=== PATIENT | male | born 1935 | race Caucasian/White ===

== ENCOUNTER 2017-08-19 17:54 | Inpatient (IN) | payer MEDICARE, SELFPAY ==
[2017-08-19 18:01] VITALS: BP 148/56; PULSE 76; RESP 22; TEMP 38.9; O2SAT 97; BMI 22.6
--- NOTE | 2017-08-19 18:40 | HMH.EDFEV ---
ED Disposition Clinical Impression: Dehydration, Flu-like symptoms, Viral respiratory illness Disposition: Still a Patient Condition on Discharge: Fair - Critical Care Critical Care Time: No Attestation: On , the high probability of a clinically significant, sudden or life threatening deterioration of the following system(s) required my full and direct attention, intervention and personal management. The time I documented below is in addition to time spent performing reported procedures but includes the following listed in this critical care notation. Medical Decision Making Vital Signs: 08/19/17 18:01 Temperature 102.0 F H Temperature Source Oral Pulse Rate [Left Radial] 76 Respiratory Rate 22 Blood Pressure [Left Arm] 148/56 Blood Pressure Mean [Left Arm] 86 Blood Pressure Source [Left Arm] Automatic Cuff Blood Pressure Position [Left Arm] Sitting 02 Sat by Pulse Oximetry 97 Oxygen Delivery Method Room Air - Lab Data Lab Results 08/19/17 18:40: WBC 8.4, RBC 3.98 L, Hgb 12.3 L, Hct 36.8 L, MCV 92.4, MCH 30.9, MCHC 33.4, RDW 13.5, Plt Count 138 L, MPV 9.5, Neut % (Auto) 73.6, Lymph % (Auto) 16.7, [place] % (Auto) 8.5, Eos % (Auto) 0.6, Baso % (Auto) 0.5, Neut # (Auto) 6.2, Lymph # (Auto) 1.4, [place] # (Auto) 0.7, Eos # (Auto) 0.1, Baso # (Auto) 0.0 08/19/17 18:40: Sodium 135 L, Potassium 4.5, Chloride 101, Carbon Dioxide 25, Anion Gap 13.5, BUN 48 H, Creatinine 2.95 H, Estimated Creat Clear 17, Estimated GFR 21 L, Est GFR ( Amer) 25 L, Glucose 185 H 08/19/17 18:40: Influenza Type A Ag Negative, Influenza Type B Ag Negative, Group A Strep Rapid Negative 08/19/17 19:04: Lactic Acid 1.0 08/19/17 19:25: Urine Color Yellow, Urine Appearance Clear, Urine pH 6.0, Ur Specific [place] 1.020, Urine Protein 2+, Urine Glucose (UA) 1+, Urine Ketones Negative, Urine Blood 2+, Urine Nitrate Negative, Urine Bilirubin Negative, Urine Urobilinogen 0.2, Ur Leukocyte Esterase Negative Result diagrams: 08/19/17 18:40 08/19/17 18:40 Orders (Tests/Meds): ED MEDICATIONS Generic Name Dose Route Start Last Admin Trade Name Freq PRN Reason Stop Dose Admin Sodium Chloride 1,000 mls @ 150 mls/hr 08/19/17 19:30 08/19/17 19:24 Sod Chloride 0.9% 1000ml Bag IV 09/18/17 19:29 150 mls/hr .[id number] KATHERINE Administration Discontinued Medications Generic Name Dose Route Start Last Admin Trade Name Freq PRN Reason Stop Dose Admin Acetaminophen 650 mg 08/19/17 18:25 08/19/17 18:26 Acetaminophen 325mg Tab PO 08/19/17 18:26 650 mg ONCE STA Administration ORDERS Category Date Time Status Chest XR -- portable [XR chest portable] Stat Exams 08/19/17 18:57 Taken UA [Urinalysis and Microscopic] Stat Lab 08/19/17 19:25 Received Blood Culture Stat Micro 08/19/17 18:42 Ordered Blood Culture Stat Micro 08/19/17 19:09 Ordered Strep Screen Confirmation Stat Micro 08/19/17 18:40 Received - Radiology Data #1 Image(s): Chest Chest x-ray interpreted by Yannick Camara M.D. No infiltrate, pneumothorax, pleural effusion, or wide mediastinum. No change from prior chest x-ray. - Facundo Inquiry Pt receiving controlled substance: No Medical Decision Making Narrative: I have discussed the case with Dr. barbour who agrees to admit the patient to the hospital. We discussed the patient's clinical information, including history, exam, laboratory and radiology results and ED course. Per hospital procedure, I will write temporary bridge inpatient orders on the patient. Specific orders requested by the admitting physician: IV fluids, Tylenol for fever control Fever HPI - General Chief Complaint: Fever Stated Complaint: cough,brar,congestion,sore throat Mode of Arrival: Wheelchair Source of Information: Relative Limitations: Physical Limitations Description of Symptoms (Recalled from ER Triage Doc. by RN): SORE THROAT, FEVER, COUGH, HEADACHES, CHILLS - History of Present Illness HPI Narrative: T
--- NOTE | 2017-08-19 18:57 | XR_ITS ---
XR chest portable HISTORY: ITS.REASON: FEVER, COUGH ORDERING PHYSICIAN: Yannick Camara MD PATIENT AGE: 82 years COMPARISON: 04/23/2017 FINDINGS: The cardiomediastinal silhouette and pulmonary vascularity are within normal limits. No lobar consolidation or collapse. Chronic changes Old bilateral rib fractures. IMPRESSION: No change with no acute finding
[2017-08-19 18:59] LABS: Basophils % 0.5 % (0.1-2.0); Eosinophils # 0.1 K/mm3 (0.0-0.4); Eosinophils % 0.6 % (0.1-12.0); Hematocrit 36.8 % (42.0-52.0); Hemoglobin 12.3 g/dL (14.1-18.0); Lymphocytes # 1.4 K/mm3 (0.7-4.5); Lymphocytes % 16.7 K/mm3 (10-50); Mean Corpuscular HGB Conc 33.4 g/dL (31.8-35.4); Mean Corpuscular Hemoglobin 30.9 pg (27.0-31.2); Mean Corpuscular Volume 92.4 fl (80-94); Mean Platelet Volume 9.5 fl (7.4-10.4); Monocytes # 0.7 K/mm3 (0.1-1.0); Monocytes % 8.5 % (1.7-9.3); Neutrophils # 6.2 K/mm3 (1.8-7.8); Neutrophils % 73.6 % (37.0-80.0); Platelet Count 138 K/mm3 (142-424); Red Blood Count 3.98 M/mm3 (4.60-6.20); Red Cell Distribution Width 13.5 % (11.5-17.5); White Blood Count 8.4 K/mm3 (4.8-10.8)
[2017-08-19 19:10] LABS: Anion Gap 13.5 mEq/L (5-15); Blood Urea Nitrogen 48 mg/dL (7-18); Carbon Dioxide 25 mmol/L (21.0-32.0); Chloride 101 mmol/L (98-107); Creatinine Clearance Estimated 17 mL/min (0-300); Creatinine,Serum 2.95 mg/dL (0.70-1.30); Estimated Glomerular Filt Rate 21 ml/min (>60); GFR (African American) 25 ML/MIN (>60); Glucose 185 mg/dL (74-106); Potassium 4.5 mmoL/L (3.5-5.1); Sodium 135 mmol/L (136-145)
[2017-08-19 19:19] LABS: Strep Scrn Group A (Rapid) Negative (Negative)
[2017-08-19 19:34] LABS: Microscopic, Urine URINE MICROSCOPIC (MICROSCOPIC)
[2017-08-19 19:37] LABS: Appearance,Urine CLEAR (Clear); Bilirubin,Urine Negative (Negative); Blood, Urine 2+ (Negative); Color,Urine YELLOW (Yellow); Glucose,Urine (UA) 1+ (Negative); Ketones,Urine Negative (Negative); Leukocyte Esterase,Urine Negative (Negative); Nitrate,Urine Negative (Negative); Protein,Urine 2+ (Negative); Urobilinogen,Urine 0.2 EU/dl (0.2)
[2017-08-19 19:52] VITALS: BP 158/56; PULSE 89; RESP 24; TEMP 38.8; O2SAT 95
[2017-08-19 19:54] LABS: Amorphous Sediment,Urine 2+ /lpf; Mucus,Urine 3+ /lpf; WBC,Urine Occasional #/hpf (0-3)
[2017-08-19 19:55] LABS: Hyaline Casts,Urine Occasional #/lpf (0)
[2017-08-19 20:28] VITALS: BP 138/61; PULSE 74; RESP 16; TEMP 39.2
--- NOTE | 2017-08-19 21:44 | HMH.HP ---
*Admission Date: 08/19/17 *Chief complaint: Sore throat and weakness *History of present illness: This 82-year-old white male was seen Dr. Saleem in [facility] office on 08/18/2017. This was a follow-up visit but at the visit the patient was complaining that his throat was very sore. His family stated that he was not eating due to his sore throat. He has developed a cough. He had also run a low-grade fever. Flu test was negative in the office and his CBC was normal. He was discharged from the office with instructions for symptomatic care. He presented this evening at the emergency room at [facility] with the same complaints and with persistent sore throat and fever. He does have chronic renal failure and is followed by peer tutor Dr. Matt. He is also treated for parkinsonian symptoms with carbidopa-levodopa and with Mirapex. He also takes fludrocortisone 0.1 mg 3 times a week [facility] History Medical History: Reports:: Anxiety, Atherosclerotic Heart Disease, BPH, Diabetes Mellitus Type 2, Hyperlipidemia, Hypertension, Renal Insufficiency Denies:: Cancer, Diabetes Mellitus Type 1, Internal Pacemaker, MRSA Other Medical History: Reports: Arthritis, Hoarseness, Sinus Problems. Denies: Thyroid Disease Other Surgeries: Yes: Appendectomy, Skin Cancer Excision (Right holiness). No: No Previous Surgery, Pacemaker Amputation: No Fractures: Yes (RIBS) - *Social History Educational Level: Attended Grade School Smoking Status: Never smoker Alcohol Intake: never Substance Use Type: denies use Occupational Status: retired Housing: house Household Members: children - Psychiatric History Expresses thoughts of harming self/others: None Suicide Plan Description: No Plan *Family Hx:: Unable to obtain, No significant family history Comment: 5 brothers, 4 sisters, 1 son, 1 daughter. Review of Systems - Constitutional Reports fatigue, Reports weakness - Eyes Denies change in vision - ENT Reports hoarseness, Reports neck pain, Reports pain with swallowing, Reports sore throat - *Cardiovascular Denies chest pain, Denies rapid, pounding, or irregular heartbeat - *Respiratory Reports chest congestion, Reports cough, Denies wheezing - *Gastrointestinal Denies abdominal pain, Denies change in bowel habits - *Genitourinary Reports difficulty urinating, Reports urinary hesitancy - *Musculoskeletal Reports back pain Comments: History of T3 fracture and 2 broken ribs 12/2016 - Integumentary/Breasts Reports dry skin, Denies change in skin color - *Neurologic Reports abnormal walking, Reports abnormal speech, Reports unsteadiness, Reports headache(s), Reports memory loss - Psychiatric Reports anxiety, Denies depression - Hematologic/Lymphatic Denies easy bleeding Meds Home Medications Medication Instructions Recorded Confirmed Type Carbidopa/Levodopa 1 tab PO BID 08/19/17 08/19/17 History [Carbidopa/Levodopa 25/100mg Tablet] Carvedilol [Carvedilol 12.5mg Tab] 1 tab PO BID 08/19/17 08/19/17 History Carvedilol [Carvedilol 12.5mg Tab] 1 tab PO BID 08/19/17 08/19/17 History Citalopram Hydrobromide [Celexa 1 tab PO DAILY 08/19/17 08/19/17 History 10mg Tablet] Fludrocortisone Acetate [Florinef 1 tab PO DAILY 08/19/17 08/19/17 History 0.1mg tablet] Gabapentin [Gabapentin 100mg Cap] 1 tab PO TID 08/19/17 08/19/17 History Insulin Glargine,Hum.rec.anlog 10 unit SQ QPMWM 08/19/17 08/19/17 History [Timmy Babin] Pramipexole Di-HCl [Mirapex 0.125 mg PO DAILY 08/19/17 08/19/17 History 0.125mg tablet] Pravastatin Sodium [Pravachol 20mg 1 tab PO DAILY 08/19/17 08/19/17 History Tablet] Tamsulosin HCl [Flomax 0.4mg 2 tab PO DAILY 08/19/17 08/19/17 History capsule] Allergies Allergy/AdvReac Type Severity Reaction Status Date / Time Penicillins [PENICILLINS] Allergy Intermediate Verified 08/19/17 18:18 Exam Vital signs and Labs for Last 24 Hours: Temp Pulse Re
--- NOTE | 2017-08-19 21:47 | P.HP_ITS ---
*Admission Date: 08/19/17 *Chief complaint: Sore throat and weakness *History of present illness: This 82-year-old white male was seen Dr. Saleem in [facility] office on 08/18/2017. This was a follow-up visit but at the visit the patient was complaining that his throat was very sore. His family stated that he was not eating due to his sore throat. He has developed a cough. He had also run a low-grade fever. Flu test was negative in the office and his CBC was normal. He was discharged from the office with instructions for symptomatic care. He presented this evening at the emergency room at [facility] with the same complaints and with persistent sore throat and fever. 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 He is also treated for parkinsonian symptoms with carbidopa-levodopa and with Mirapex. He also takes fludrocortisone 0.1 mg 3 times a week [facility] History Medical History: Reports:: Anxiety, Atherosclerotic Heart Disease, BPH, Diabetes Mellitus Type 2, Hyperlipidemia, Hypertension, Renal Insufficiency Denies:: Cancer, Diabetes Mellitus Type 1, Internal Pacemaker, MRSA Other Medical History: Reports: Arthritis, Hoarseness, Sinus Problems. Denies: Thyroid Disease Other Surgeries: Yes: Appendectomy, Skin Cancer Excision (Right adventism). No: No Previous Surgery, Pacemaker Amputation: No Fractures: Yes (RIBS) - *Social History Educational Level: Attended Grade School Smoking Status: Never smoker Alcohol Intake: never Substance Use Type: denies use Occupational Status: retired Housing: house Household Members: children - Psychiatric History Expresses thoughts of harming self/others: None Suicide Plan Description: No Plan *Family Hx:: Unable to obtain, No significant family history Comment: 5 brothers, 4 sisters, 1 son, 1 daughter. Review of Systems - Constitutional Reports fatigue, Reports weakness - Eyes Denies change in vision - ENT Reports hoarseness, Reports neck pain, Reports pain with swallowing, Reports sore throat - *Cardiovascular Denies chest pain, Denies rapid, pounding, or irregular heartbeat - *Respiratory Reports chest congestion, Reports cough, Denies wheezing - *Gastrointestinal Denies abdominal pain, Denies change in bowel habits - *Genitourinary Reports difficulty urinating, Reports urinary hesitancy - *Musculoskeletal Reports back pain Comments: History of T3 fracture and 2 broken ribs 12/2016 - Integumentary/Breasts Reports dry skin, Denies change in skin color - *Neurologic Reports abnormal walking, Reports abnormal speech, Reports unsteadiness, Reports headache(s), Reports memory loss - Psychiatric Reports anxiety, Denies depression - Hematologic/Lymphatic Denies easy bleeding Meds Home Medications Medication Instructions Recorded Confirmed Type Carbidopa/Levodopa 1 tab PO BID 08/19/17 08/19/17 History [Carbidopa/Levodopa 25/100mg Tablet] Carvedilol [Carvedilol 12.5mg Tab] 1 tab PO BID 08/19/17 08/19/17 History Carvedilol [Carvedilol 12.5mg Tab] 1 tab PO BID 08/19/17 08/19/17 History Citalopram Hydrobromide [Celexa 1 tab PO DAILY 08/19/17 08/19/17 History 10mg Tablet] Fludrocortisone Acetate [Florinef 1 tab PO DAILY 08/19/17 08/19/17 History 0.1mg tablet] Gabapentin [Gabapentin 100mg Cap] 1 tab PO TID 08/19/17 08/19/17 History Insulin Glargine,Hum.rec.anlog 10 unit SQ QPMWM 08/19/17 08/19/17 History [Timmy Babin]
[2017-08-19 22:04] VITALS: BMI 21.3
[2017-08-19 22:16] LABS: Thyroid Stimulating Hormone 1.51 uIU/ml (0.358-3.740)
[2017-08-19 22:28] LABS: Erythrocyte Sedimentation Rate 33 mm/hr (0-20)
[2017-08-19 22:36] LABS: POC Glucose,Bedside 244 mg/dL
[2017-08-20] VITALS (8 sets, daily range): BP systolic 113–172; BP diastolic 60–69; PULSE 64–86; RESP 16–20; TEMP 36.9–38.3; O2SAT 81–99
--- NOTE | 2017-08-20 04:38 | PC.NURSE ---
PT NEW ADMIT THIS SHIFT. DAUGHTER PROVIDED HISTORY AND MEDS. 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 PT HAS BOWEL/BLADDER INCONTINENCE AT TIMES. NO SKIN ISSUES NOTED. OCCASIONAL NON-PRODUCTIVE COUGH NOTED. RA WITH NO SOB REPORTED.
--- NOTE | 2017-08-20 05:35 | CT_ITS ---
CT soft tissue neck wo con COMPARISON: None HISTORY: Painful swallowing, throat pain TECHNIQUE: Multiple axial scans of the neck were obtained. Sagittal and coronal reformats were evaluated as well. FINDINGS: There is normal curvature and alignment cervical spine. Disc spaces are well maintained throughout. The prevertebral soft tissues are normal and the odontoid is normal. There is no abnormal cervical lymphadenopathy. The epiglottis appears normal. The valleculae and piriform sinuses appear normal. IMPRESSION: No acute pathology identified, agree the [facility] report
--- NOTE | 2017-08-20 05:35 | CT_ITS ---
CT chest wo con COMPARISON: CT scan chest noncontrast 01/04/2017 HISTORY: Shortness of breath, decreased oxygen saturation TECHNIQUE: Multiple axial scans obtained from the thoracic inlet the hemidiaphragms and were performed without IV contrast. Sagittal coronal reformats were evaluated as well. FINDINGS: The lung blas are well expanded. Diffuse patchy ill-defined pneumonic infiltrates are seen in the right upper lobe right perihilar region, superior segment of the right lower lobe and basilar segments of the right lower lobe. There may be minimal involvement of the right middle lobe as well. The left lung field is clear of active infiltrate. Again noted are multiple bilateral noncalcified pulmonary nodule stable and unchanged from previous exam. There is mild cardio megaly with left ventricular prominence, the pulmonary vascularity is normal. There are old healed rib fracture bilaterally. There is a stable old compression fracture T3. There is arteriosclerotic calcification of the aortic arch as noted previously. There are hypodense lesions in the upper poles of both kidneys partially visualized likely resenting simple renal cysts. IMPRESSION: Diffuse bronchopneumonia involving most of the right lung, stable bilateral noncalcified pulmonary nodules, I agree with the [facility] report.
[2017-08-20 05:58] LABS: ABG Base Excess -5.2 mmol/L (-2.4-2.3); ABG Oxygen Saturation 93 % (90-100); ABG PCO2 28.7 mmhg (35.0-45.0); ABG PH 7.44 mmol/L (7.35-7.45); ABG PO2 64.2 mmhg (80-100); ABG TCO2 19.9 mmhg (23-27)
[2017-08-20 06:00] LABS: Allen's Test Acceptable; Oxygen 28% %; Source Left Radial
--- NOTE | 2017-08-20 06:23 | PC.NURSE ---
Addendum entered by Charito Olivo RN 08/20/17 06:56: LUNG DIMINISHED RIGHT SIDE, MORE SO IN RIGHT BASE. LUNG CTA LEFT LOBES Original Note: AT 0505 PT OXYGEN LEVEL 80-81 PERCENT ON RA. SET PT UP, HAD PT DEEP BREATH AND COUGH. SATS UP TO 85 PERCENT. PLACED PT ON 2L PER NC WITH 02 SATS 89-[address] CRENSHAW AT 0520. MULTIPLE PHONE CONVERSATIONS WITH DR CRENSHAW. FINALLY RECEIVED ORDER FOR ABGS AND CT OF CHEST AND NECK WITHOUT CONTRAST. PT DENIED SOB AND NO RESPIRATORY DISTRESS NOTED. PT SATS REACHED 94 PERCENT ON 2L PER NC. RECEIVED ORDER FOR OXYGEN. CONTINUE TO MONITOR PT. PT CURRENTLY OFF UNIT FOR CT.
[2017-08-20 06:29] LABS: POC Glucose,Bedside 160 mg/dL
[2017-08-20 06:33] LABS: Basophils % 0.1 % (0.1-2.0); Eosinophils % 0.2 % (0.1-12.0); Hematocrit 38.7 % (42.0-52.0); Hemoglobin 12.5 g/dL (14.1-18.0); Lymphocytes # 0.8 K/mm3 (0.7-4.5); Lymphocytes % 12.2 K/mm3 (10-50); Mean Corpuscular HGB Conc 32.5 g/dL (31.8-35.4); Mean Corpuscular Hemoglobin 30.5 pg (27.0-31.2); Mean Corpuscular Volume 94.1 fl (80-94); Mean Platelet Volume 9.5 fl (7.4-10.4); Monocytes # 0.3 K/mm3 (0.1-1.0); Monocytes % 5.2 % (1.7-9.3); Neutrophils % 82.4 % (37.0-80.0); Platelet Count 123 K/mm3 (142-424); Red Blood Count 4.11 M/mm3 (4.60-6.20); Red Cell Distribution Width 13.5 % (11.5-17.5); White Blood Count 6.1 K/mm3 (4.8-10.8)
--- NOTE | 2017-08-20 06:42 | PC.NURSE ---
Pt off floor for CT at this time
[2017-08-20 06:57] LABS: Anion Gap 15.1 mEq/L (5-15); Blood Urea Nitrogen 48 mg/dL (7-18); Carbon Dioxide 23 mmol/L (21.0-32.0); Chloride 104 mmol/L (98-107); Creatinine Clearance Estimated 17 mL/min (0-300); Creatinine,Serum 2.71 mg/dL (0.70-1.30); Estimated Glomerular Filt Rate 23 ml/min (>60); GFR (African American) 27 ML/MIN (>60); Glucose 158 mg/dL (74-106); Potassium 4.1 mmoL/L (3.5-5.1); Sodium 138 mmol/L (136-145)
--- NOTE | 2017-08-20 07:47 | PC.NURSE ---
REPORT OBTAINED FROM DARLENE DALE
--- NOTE | 2017-08-20 09:09 | HMH.ACPN2 ---
Internal Medicine - PN: Subj *Date: 08/20/17 *Time: 09:09 Interval history: He remained stable. He is still hoarse and congested. His TSH returned as normal. His blood chemistries are stable and his creatinine has come down only slightly. I ordered a CT of the neck and chest without contrast. The results of these are pending. Exam Vital signs and Labs for Last 24 Hours: Temp Pulse Resp BP Pulse Ox 100.9 F H 86 16 113/60 93 L 08/20/17 08:14 08/20/17 08:14 08/20/17 08:14 08/20/17 08:14 08/20/17 08:14 Laboratory Results - last 24 hr 08/19/17 21:54: POC Glucose 244 08/20/17 05:50: Specimen Source Left radial, O2 % 28%, ABG pH 7.44, ABG pCO2 28.7 L, ABG pO2 64.2 L, ABG HCO3 19.0 L, ABG Total CO2 19.9 L, ABG O2 Saturation 93, ABG Base Excess -5.2 L, Brooks Test Acceptable 08/20/17 05:51: POC Glucose 160 08/20/17 06:00: WBC 6.1 D, RBC 4.11 L, Hgb 12.5 L, Hct 38.7 L, MCV 94.1 H, MCH 30.5, MCHC 32.5, RDW 13.5, Plt Count 123 L, MPV 9.5, Neut % (Auto) 82.4 H, Lymph % (Auto) 12.2, [place] % (Auto) 5.2, Eos % (Auto) 0.2, Baso % (Auto) 0.1, Neut # (Auto) 5.0, Lymph # (Auto) 0.8, [place] # (Auto) 0.3, Eos # (Auto) 0.0, Baso # (Auto) 0.0 08/20/17 06:00: Sodium 138, Potassium 4.1, Chloride 104, Carbon Dioxide 23, Anion Gap 15.1 H, BUN 48 H, Creatinine 2.71 H, Estimated Creat Clear 17, Estimated GFR 23 L, Est GFR ( Amer) 27 L, Glucose 158 H I & O for Last 24 hours: Intake & Output 08/17/17 08/18/17 08/19/1718 11:59 11:59 11:59 11:59 Intake Total 1461 / 1461 Output Total 350 / 350 Balance 1111 / 1111 Weight 117 lb 8 oz - Constitutional no acute distress - *Routine Neck Exam Present: supple, full ROM. Absent: swelling - *Routine Respiratory Exam Present: decreased breath sounds, rhonchi (Thumb) - *Routine Abdominal Exam Present: soft - *Routine Extremities Exam Absent: edema Assessment and Plan (1) Throat pain Current visit: Yes Status: Acute Category: Medical Code(s): R07.0 - Pain in throat (2) Renal failure Current visit: Yes Status: Acute Category: Medical Code(s): N19 - Unspecified kidney failure (3) Weakness Current visit: Yes Status: Acute Category: Medical Code(s): R53.1 - Weakness (4) Insulin dependent diabetes mellitus Current visit: Yes Status: Acute Category: Medical Code(s): E11.9 - Type 2 diabetes mellitus without complications; Z79.4 - assistant terminal manager (current) use of insulin (5) Diabetes mellitus Current visit: Yes Status: Acute Category: Medical Code(s): E11.9 - Type 2 diabetes mellitus without complications - Assessment and plan all Dx Assessment and Plan for all problems:: await CT
--- NOTE | 2017-08-20 13:40 | HMH.PHAVTE ---
[facility] Pharmacy VTE Monitoring - Patient Demographics Admission date: 08/19/17 Report Date: 08/20/17 Time: 13:40 Allergies/Adverse Reactions: Patient Allergies Penicillins [PENICILLINS] Allergy (Intermediate, Verified 08/19/17 18:18) Height: 1.63 m Weight: 53.297 kg Patient Problems: Current Active Problems Dehydration (Acute) Flu-like symptoms (Acute) Viral respiratory illness (Acute) Throat pain (Acute) Weakness (Acute) Renal failure (Acute) Diabetes mellitus (Acute) Insulin dependent diabetes mellitus (Acute) - VTE Risk Labs: VTE Related Lab Results Hgb 12.5 g/dL (14.1-18.0) L 08/20/17 06:00 Hct 38.7 % (42.0-52.0) L 08/20/17 06:00 Plt Count 123 K/mm3 (142-424) L 08/20/17 06:00 BUN 48 mg/dL (7-18) H 08/20/17 06:00 Creatinine 2.71 mg/dL (0.70-1.30) H 08/20/17 06:00 Estimated Creat Clear 17 mL/min (0-300) 08/20/17 06:00 Was VTE Risk Assessment Performed: Yes VTE Score: 4 VTE Risk Level: Low Risk - Prophylaxis VTE Prophylaxis Ordered?: Yes Types of VTE Prophylaxis: TEDS Knee High Location of Applied Device: Bilateral Lower Extremeties
[2017-08-20 17:08] LABS: POC Glucose,Bedside 309 mg/dL
--- NOTE | 2017-08-20 19:56 | PC.NURSE ---
report given to jose antonio mosley rn
[2017-08-20 21:40] LABS: POC Glucose,Bedside 231 mg/dL
[2017-08-21] VITALS (11 sets, daily range): BP systolic 117–192; BP diastolic 42–99; PULSE 57–73; RESP 18–22; TEMP 36.3–36.9; O2SAT 91–100; BMI 19.6
--- NOTE | 2017-08-21 04:32 | PC.NURSE ---
NO COMPLAINTS STATED. TOLERATED 2LNC WELL THIS SHIFT. WILL ATTEMPT TO WEAN OXYGEN DOWN ON 0500 ROUND. RHONCHI AUSCULTATED ON ASSESSMENT OF LUNG SOUNDS. A&OX3 AND NOTIFIED STAFF APPROPRIATELY THIS SHIFT. VSS. WILL CONTINUE TO MONITOR.
[2017-08-21 06:39] LABS: POC Glucose,Bedside 155 mg/dL
--- NOTE | 2017-08-21 10:45 | HMH.ACPN2 ---
Internal Medicine - PN: Subj *Date: 08/21/17 *Time: 10:45 Interval history: He is markedly improved today. His voice is even stronger! He is not having throat pain. He is less congested. His chest x-ray did not indicate pneumonia but the CT showed bronchopneumonia on the right. He is responding to IV antibiotic. Exam Vital signs and Labs for Last 24 Hours: Temp Pulse Resp BP Pulse Ox 97.9 F 65 22 120/58 96 08/21/17 08:00 08/21/17 08:00 08/21/17 08:00 08/21/17 08:00 08/21/17 08:40 Laboratory Results - last 24 hr 08/20/17 16:44: POC Glucose 309 08/20/17 21:10: POC Glucose 231 08/21/17 06:23: POC Glucose 155 I & O for Last 24 hours: Intake & Output 08/18/17 08/19/17 08/20/17 08/21/17 11:59 11:59 11:59 11:59 Intake Total 1461 / 1461 2703 / 2703 Output Total 350 / 350 1200 / 1200 Balance 1111 / 1111 1503 / 1503 Weight 117 lb 8 oz 117 lb 8 oz - Constitutional no acute distress Comments: Obviously feels better - *Routine HEENT Exam Comments: Voice is much stronger. - *Routine Respiratory Exam Comments: Much better air movement. Not wheezing. - *Routine Cardiovascular Exam Present: RRR - *Routine Extremities Exam Absent: edema Assessment and Plan (1) Bronchopneumonia Current visit: Yes Status: Acute Category: Medical Code(s): J18.0 - Bronchopneumonia, unspecified organism (2) Throat pain Current visit: Yes Status: Acute Category: Medical Code(s): R07.0 - Pain in throat (3) Dehydration Current visit: Yes Status: Acute Category: Medical Code(s): E86.0 - Dehydration (4) Renal failure Current visit: Yes Status: Acute Category: Medical Code(s): N19 - Unspecified kidney failure (5) Weakness Current visit: Yes Status: Acute Category: Medical Code(s): R53.1 - Weakness (6) Insulin dependent diabetes mellitus Current visit: Yes Status: Acute Category: Medical Code(s): E11.9 - Type 2 diabetes mellitus without complications; 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
[2017-08-21 13:14] LABS: POC Glucose,Bedside 276 mg/dL
[2017-08-21 13:14] LABS: POC Glucose,Bedside 284 mg/dL
[2017-08-21 13:14] LABS: POC Glucose,Bedside 218 mg/dL
--- NOTE | 2017-08-21 20:36 | PC.NURSE ---
nurse notified of pts elevated bp
--- NOTE | 2017-08-21 23:16 | PC.NURSE ---
nurse notifiied of tps bp
[2017-08-22] VITALS (14 sets, daily range): BP systolic 123–182; BP diastolic 46–76; PULSE 60–81; RESP 16–24; TEMP 36.4–37.1; O2SAT 87–96
--- NOTE | 2017-08-22 04:47 | PC.NURSE ---
C/O RADER AND FEELS WHEEZE AFTER GETTING UP TO USE BATHROOM OR BEING UP TOO LONG. ON 0400 VS O2 SAT NOTED 88% ON RA DESPITE ELEVATING HOB AND INSTRUCTING PT TO INHALE AND EXHALE DEEPLY, OXYGEN SAT ONLY INCREASED TO 89%. PT PLACED ON 1LNC AT THIS TIME. PRIOR TO OBTAINING 0400 VS PT HAD BEEN OOB TO USE THE BATHROOM. RN AUSCULTATED LUNG SOUNDS AT THIS TIME. WHEEZING WAS NOTED. AT BEGINNING OF SHIFT LUNG SOUNDS AUSCULTATED WAS RHONCHI AND WHEEZING. AFTER RESTING, ,PT STATES I ALREADY FEEL BETTER FROM JUST RESTING FOR A FEW MINUTES. WILL CONTINUE TO MONITOR. PT'S RESPIRATORY STATUS CLOSELY AND ATTEMPT TO WEAN TO RA PRIOR TO DAY SHIFT STAFF'S ARRIVAL. DID ADMINISTER PRN TYLENOL FOR C/O RADER. INSTRUCTED PT TO NOTIFY RN IF RADER REMAINS FOLLOWING ADMINISTRATION.
[2017-08-22 06:28] LABS: Basophils % 0.1 % (0.1-2.0); Eosinophils % 0.2 % (0.1-12.0); Hematocrit 32.2 % (42.0-52.0); Hemoglobin 10.5 g/dL (14.1-18.0); Lymphocytes # 0.6 K/mm3 (0.7-4.5); Lymphocytes % 8.2 K/mm3 (10-50); Mean Corpuscular HGB Conc 32.7 g/dL (31.8-35.4); Mean Corpuscular Hemoglobin 30.7 pg (27.0-31.2); Mean Corpuscular Volume 93.7 fl (80-94); Mean Platelet Volume 10.4 fl (7.4-10.4); Monocytes # 0.3 K/mm3 (0.1-1.0); Monocytes % 4.6 % (1.7-9.3); Neutrophils # 6.3 K/mm3 (1.8-7.8); Platelet Count 132 K/mm3 (142-424); Red Blood Count 3.43 M/mm3 (4.60-6.20); Red Cell Distribution Width 13.7 % (11.5-17.5); White Blood Count 7.3 K/mm3 (4.8-10.8)
[2017-08-22 06:29] LABS: Blood Urea Nitrogen 50 mg/dL (7-18); Carbon Dioxide 22 mmol/L (21.0-32.0); Chloride 111 mmol/L (98-107); Creatinine Clearance Estimated 19 mL/min (0-300); Creatinine,Serum 2.23 mg/dL (0.70-1.30); Estimated Glomerular Filt Rate 28 ml/min (>60); GFR (African American) 34 ML/MIN (>60); Glucose 144 mg/dL (74-106); MANUAL DIFFERENTIAL MANUAL DIFFERENTIAL (MANUAL DIFF); Sodium 142 mmol/L (136-145)
[2017-08-22 06:48] LABS: POC Glucose,Bedside 158 mg/dL
[2017-08-22 06:48] LABS: POC Glucose,Bedside 261 mg/dL
--- NOTE | 2017-08-22 07:03 | PC.NURSE ---
WEANED BACK TO RA. O2 SATS NOTED AT 92% ON RA.
--- NOTE | 2017-08-22 08:38 | XR_ITS ---
XR chest portable HISTORY: ITS.REASON: pneumonia ORDERING PHYSICIAN: Sylvia Saleem MD PATIENT AGE: 82 years FINDINGS: The cardiomediastinal silhouette and pulmonary vascularity are within normal limits. Consolidation is now noted in the right upper and right lower lobe consistent with pneumonia. Left lung remains clear. There are old bilateral rib fractures. IMPRESSION: Development of right-sided pneumonia in the inferior aspect of the right upper lobe and in the right lower lobe. This has developed since previous radiograph of 08/19/2017 and appears somewhat worse since the previous CT scan of 08/20/2017
--- NOTE | 2017-08-22 08:40 | HMH.ACPN2 ---
Internal Medicine - PN: Subj *Date: 08/22/17 *Time: 08:40 Interval history: Did not have a very good night; Is SOB and wheezing; ate all of breakfast; bowels are moving and he is voiding without difficulty. patient hs periodic left anterior chest ache Exam Vital signs and Labs for Last 24 Hours: Temp Pulse Resp BP Pulse Ox 97.9 F 66 24 156/46 90 L 08/22/17 04:00 08/22/17 08:34 08/22/17 04:00 08/22/17 04:00 08/22/17 04:00 Laboratory Results - last 24 hr 08/20/17 09:28: POC Glucose 218 08/20/17 11:24: POC Glucose 284 08/21/17 11:24: POC Glucose 276 08/21/17 20:53: POC Glucose 261 08/22/17 05:58: WBC 7.3, RBC 3.43 L, Hgb 10.5 L, Hct 32.2 L, MCV 93.7, MCH 30.7, MCHC 32.7, RDW 13.7, Plt Count 132 L, MPV 10.4, Neut % (Auto) 87.0 H, Lymph % (Auto) 8.2 L, [place] % (Auto) 4.6, Eos % (Auto) 0.2, Baso % (Auto) 0.1, Neut # (Auto) 6.3, Lymph # (Auto) 0.6 L, [place] # (Auto) 0.3, Eos # (Auto) 0.0, Baso # (Auto) 0.0 08/22/17 05:58: Sodium 142, Potassium 4.0, Chloride 111 H, Carbon Dioxide 22, Anion Gap 13.0, BUN 50 H, Creatinine 2.23 H, Estimated Creat Clear 19, Estimated GFR 28 L, Est GFR ( Amer) 34 L D, Glucose 144 H 08/22/17 06:26: POC Glucose 158 I & O for Last 24 hours: Intake & Output 08/19/17 08/20/17 08/21/17 08/22/17 11:59 11:59 11:59 11:59 Intake Total 1461 / 1461 2703 / 2703 3758 / 3758 Output Total 350 / 350 1200 / 1200 925 / 925 Balance 1111 / 1111 1503 / 1503 2833 / 2833 Weight 117 lb 8 oz 117 lb 8 oz 115 lb 4.722 oz - Constitutional no acute distress - *Routine Respiratory Exam Absent: accessory muscle use Comments: bilateral scattered wheezes and rhonchi throughout - *Routine Cardiovascular Exam Present: RRR - *Routine Abdominal Exam Present: soft, normoactive bowel sounds. Absent: tenderness, distended - *Routine Extremities Exam Absent: edema, calf tenderness - *Routine Neurological Exam Present: alert, oriented X3 Assessment and Plan (1) Bronchopneumonia Current visit: Yes Status: Acute Category: Medical Code(s): J18.0 - Bronchopneumonia, unspecified organism (2) Throat pain Current visit: Yes Status: Acute Category: Medical Code(s): R07.0 - Pain in throat (3) Dehydration Current visit: Yes Status: Acute Category: Medical Code(s): E86.0 - Dehydration (4) Renal failure Current visit: Yes Status: Acute Category: Medical Code(s): N19 - Unspecified kidney failure (5) Weakness Current visit: Yes Status: Acute Category: Medical Code(s): R53.1 - Weakness (6) Insulin dependent diabetes mellitus Current visit: Yes Status: Acute Category: Medical Code(s): E11.9 - Type 2 diabetes mellitus without complications; Z79.4 - ferry terminal supervisor (current) use of insulin (7) Diabetes mellitus Current visit: Yes Status: Acute Category: Medical Code(s): E11.9 - Type 2 diabetes mellitus without complications (8) Flu-like symptoms Current visit: Yes Status: Acute Category: Medical Code(s): R68.89 - Other general symptoms and signs - Assessment and plan all Dx Assessment and Plan for all problems:: start Duonebs; saline lock
--- NOTE | 2017-08-22 08:43 | P.PN_ITS ---
Internal Medicine - PN: Subj *Date: 08/22/17 *Time: 08:40 Interval history: Did not have a very good night; Is SOB and wheezing; ate all of breakfast; bowels are moving and he is voiding without difficulty. patient hs periodic left anterior chest ache Exam Vital signs and Labs for Last 24 Hours: Temp Pulse Resp BP Pulse Ox 97.9 F 66 24 156/46 90 L 08/22/17 04:00 08/22/17 08:34 08/22/17 04:00 08/22/17 04:00 08/22/17 04:00 Laboratory Results - last 24 hr 08/20/17 09:28: POC Glucose 218 08/20/17 11:24: POC Glucose 284 08/21/17 11:24: POC Glucose 276 08/21/17 20:53: POC Glucose 261 08/22/17 05:58: WBC 7.3, RBC 3.43 L, Hgb 10.5 L, Hct 32.2 L, MCV 93.7, MCH 30.7 , MCHC 32.7, RDW 13.7, Plt Count 132 L, MPV 10.4, Neut % (Auto) 87.0 H, Lymph % (Auto) 8.2 L, [place] % (Auto) 4.6, Eos % (Auto) 0.2, Baso % (Auto) 0.1, Neut # ( Auto) 6.3, Lymph # (Auto) 0.6 L, [place] # (Auto) 0.3, Eos # (Auto) 0.0, Baso # ( Auto) 0.0 08/22/17 05:58: Sodium 142, Potassium 4.0, Chloride 111 H, Carbon Dioxide 22, Anion Gap 13.0, BUN 50 H, Creatinine 2.23 H, Estimated Creat Clear 19, Estimated GFR 28 L, Est GFR ( Amer) 34 L D, Glucose 144 H 08/22/17 06:26: POC Glucose 158 I & O for Last 24 hours: Intake & Output 08/19/17 08/20/17 08/21/17 08/22/17 11:59 11:59 11:59 11:59 Intake Total 1461 / 1461 2703 / 2703 3758 / 3758 Output Total 350 / 350 1200 / 1200 925 / 925 Balance 1111 / 1111 1503 / 1503 2833 / 2833 Weight 117 lb 8 oz 117 lb 8 oz 115 lb 4.722 oz - Constitutional no acute distress - *Routine Respiratory Exam Absent: accessory muscle use Comments: bilateral scattered wheezes and rhonchi throughout - *Routine Cardiovascular Exam Present: RRR - *Routine Abdominal Exam Present: soft, normoactive bowel sounds. Absent: tenderness, distended - *Routine Extremities Exam Absent: edema, calf tenderness - *Routine Neurological Exam Present: alert, oriented X3 Assessment and Plan (1) Bronchopneumonia Current visit: Yes Status: Acute Category: Medical Code(s): J18.0 - Bronchopneumonia, unspecified organism (2) Throat pain Current visit: Yes Status: Acute Category: Medical Code(s): R07.0 - Pain in throat (3) Dehydration Current visit: Yes Status: Acute Category: Medical Code(s): E86.0 - Dehydration (4) Renal failure Current visit: Yes Status: Acute Category: Medical Code(s): N19 - Unspecified kidney failure (5) Weakness Current visit: Yes Status: Acute Category: Medical Code(s): R53.1 - Weakness (6) Insulin dependent diabetes mellitus Current visit: Yes Status: Acute Category: Medical Code(s): E11.9 - Type 2 diabetes mellitus without complications; Z79.4 - long-term (current) use of insulin (7) Diabetes mellitus Current visit: Yes Status: Acute Category: Medical Code(s): E11.9 - Type 2 diabetes mellitus without complications (8) Flu-like symptoms Current visit: Yes Status: Acute Category: Medical Code(s): R68.89 - Other general symptoms and signs - Assessment and plan all Dx Assessment and Plan for all problems:: start Duonebs; saline lock
[2017-08-22 09:04] LABS: Lymphocytes % 4 % (10-50); Monocytes % 2 % (2-9); Neutrophils % 89 % (42-76); Platelet Estimate Slight Decrease; RBC Morphology Normal; Total Cells Counted 100
--- NOTE | 2017-08-22 15:47 | DIET.NUTRFU ---
Pt observed eating lunch, he is able to feed himself without any difficulty. 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 Noted weight loss since last hospital admission in december 2016 of 11 lbs. BMI 19.7. Glucose POC 158, 261. PO intakes on diabetic diet are 75-100%. Will add Glucerna supplements one each meal to help prevent any further weight loss.
[2017-08-22 18:03] LABS: POC Glucose,Bedside 248 mg/dL
--- NOTE | 2017-08-22 21:00 | PC.NURSE ---
rn notified of vitals, arely newell off at this time
[2017-08-22 21:17] LABS: POC Glucose,Bedside 284 mg/dL
--- NOTE | 2017-08-22 22:16 | PC.NURSE ---
pt does not have teds on at this time
[2017-08-23] VITALS (11 sets, daily range): BP systolic 123–181; BP diastolic 60–80; PULSE 63–79; RESP 18–28; TEMP 36.4–37; O2SAT 90–96
--- NOTE | 2017-08-23 00:21 | PC.NURSE ---
AT 2229 PT NOTIFIED WC TO SEND STAFF IN ROOM. SRNA RESPONDED TO PT REQUEST, PT STATED I AM HAVING TROUBLE BREATHING AND I FEEL AWFUL. SRNA ALERTED RN OF COMPLAINT AND OBTAINED O2 SAT AT THIS TIME, O2 SAT READ 90%-91% ON RA. ON ENTERING ROOM, RN INSTRUCTED PT TO COUGH TO ATTEMPT TO GET SPUTUM UP R/T AUDIBLE CRACKLY SOUNDS HEARD ON INSPIRATION. RN AUSCULTATED LUNG SOUNDS, RHONCHI T/O NOTED. VS OBTAINED AT THIS TIME. BP: 190/86 (FOLLOWING CARVEDILOL ADMINISTRATION AROUND 2129), HR: 72, RR: 36, O2 SAT: 91% ON RA, TEMP: 97.9 ORALLY. MD TROUBLE DISPATCHER WAS PAGED AT 2230. DR. MANZANO RESPONDED TO PAGE AT 0 THE ABOVE INFORMATION WAS REPORTED. THE FOLLOWING INFORMATION WAS ALSO REPORTED: IVF'S WERE DC'D TODAY ON DAY SHIFT, IVF'S WERE INFUSING AT A RATE OF 100 ML/HR; DUONEB QID WERE STARTED TODAY. DUONEB WAS ADMINISTERED AROUND 1999 AND ANOTHER TREATMENT WILL NOT BE ADMINISTERED AGAIN UNTIL 06; ALSO LAST LAB DRAW RESULTED BUN AT 50 AND CREATNINE AT 2.23. ORDERED: ONE TIME ALBUTEROL NEB TREATMENT (ADMINISTER NOW) ONE TIME DOSE OF 40 MG IV LASIX (ADMINISTER IF BREATHING TREATMENT DOES NOT HELP) NEB TREATMENT WAS ADMINISTERED PER SEP. ON REASSESSMENT, PT REPORTED I FEEL A LITTLE BETTER BUT NOT COMPLETELY. LUNG SOUNDS AUSCULTATED AGAIN AND WERE UNCHANGED FROM PREVIOUS AUSCULTATION. LASIX WAS ADMINISTERED AT THIS TIME PER SEP.
--- NOTE | 2017-08-23 00:34 | PC.NURSE ---
rn aware of all vital signs
[2017-08-23 01:13] LABS: POC Glucose,Bedside 67 mg/dL
[2017-08-23 01:13] LABS: POC Glucose,Bedside 146 mg/dL
--- NOTE | 2017-08-23 02:58 | PC.NURSE ---
SINCE PREVIOUS NOTE, PT IS RESTING WITH EYES CLOSED IN BED, RR IS BACK IN 20'S. 2LNC APPLIED R/T RA O2 SAT OBTAINED AND READING 87%. WILL ATTEMPT TO WEAN OXYGEN FOR 0400 VS ROUND. VSS. WILL CONTINUE TO MONITOR.
--- NOTE | 2017-08-23 03:41 | PC.NURSE ---
AT BEGINNING OF SHIFT FSBS NOTED 67, PT PROVIDED WITH ORANGE JUICE AND PEANUT BUTTER AND CRACKERS. PT STATED AROUND 2330 I AM NERVOUS ABOUT MY SUGAR CAN YOU RECHECK IT? RN REASSESSED FSBS, RESULTED 146. TYLENOL WAS ADMINISTERED FOR C/O RADER.
--- NOTE | 2017-08-23 05:59 | PC.NURSE ---
ON REASSESSMENT AROUND 0400, LUNG SOUNDS NOTED SCATTERED RHONCHI. WEANED PT TO RA, TOLERATING WELL. PT STATES I FEEL A LOT BETTER.
[2017-08-23 06:33] LABS: POC Glucose,Bedside 301 mg/dL
--- NOTE | 2017-08-23 08:30 | HMH.ACPN ---
Internal Medicine - PN: Subj *Date: 08/23/17 *Time: 08:30 Exam Vital signs and Labs for Last 24 Hours: Temp Pulse Resp BP Pulse Ox 98.6 F 64 22 123/60 96 08/23/17 08:00 08/23/17 08:00 08/23/17 08:00 08/23/17 08:00 08/23/17 08:00 Laboratory Results - last 24 hr 08/21/17 17:13: POC Glucose 284 08/22/17 05:58: Total Counted 100, Neutrophils % (Manual) 89 H, Band Neutrophils % 4.0, Lymphocytes % (Manual) 4 L, Atypical Lymphs % 1.0, Monocytes % (Manual) 2, Platelet Estimate Slight decrease, RBC Morphology Normal 08/22/17 17:46: POC Glucose 248 08/22/17 21:26: POC Glucose 67 08/22/17 23:49: POC Glucose 146 08/23/17 06:07: POC Glucose 301 I & O for Last 24 hours: Intake & Output 08/20/17 08/21/17 08/22/17 08/23/17 23:59 23:59 23:59 23:59 Intake Total 1701 / 1701 3924 / 3924 3017 / 3017 360 / 360 Output Total 850 / 850 1000 / 1000 1425 / 1425 2500 / 2500 Balance 851 / 851 2924 / 2924 1592 / 1592 -2140 / -2140 Weight 53.297 kg 52.297 kg Assessment and Plan (1) Bronchopneumonia Current visit: Yes Status: Acute Category: Medical Code(s): J18.0 - Bronchopneumonia, unspecified organism (2) Throat pain Current visit: Yes Status: Acute Category: Medical Code(s): R07.0 - Pain in throat (3) Renal failure Current visit: Yes Status: Acute Category: Medical Code(s): N19 - Unspecified kidney failure (4) Flu-like symptoms Current visit: Yes Status: Acute Category: Medical Code(s): R68.89 - Other general symptoms and signs The patient's infection will respond to the chosen ABx?: Yes (Clinical picture supports viral and bacterial infection) Is the patient receiving the right drug, dose, and route?: Yes Could a more targeted ABx be ordered?: No (Cultures negative, empiric therapy is acceptable)
--- NOTE | 2017-08-23 08:56 | HMH.ACPN2 ---
Internal Medicine - PN: Subj *Date: 08/23/17 *Time: 09:51 Interval history: Events of the night reviewed; patient states he was short of breath and wheezing and was corrected by increasing his blood sugar; feels better this morning; dates he received a shot which made void more frequently; continues with a cough and exertional shortness of breath; he denies chest pain; he has been up out of bed and sitting in the chair; he is eating without difficulty; Nursing reports that last night about 12 midnight he complained of shortness of breath: He received an additional neb treatment and breathing did not improve he then received 40 mg of Lasix IV after which his breathing was much improved and wheezing increased Exam Vital signs and Labs for Last 24 Hours: Temp Pulse Resp BP Pulse Ox 98.6 F 64 22 123/60 96 08/23/17 08:00 08/23/17 08:00 08/23/17 08:00 08/23/17 08:00 08/23/17 08:00 Laboratory Results - last 24 hr 08/21/17 17:13: POC Glucose 284 08/22/17 05:58: Total Counted 100, Neutrophils % (Manual) 89 H, Band Neutrophils % 4.0, Lymphocytes % (Manual) 4 L, Atypical Lymphs % 1.0, Monocytes % (Manual) 2, Platelet Estimate Slight decrease, RBC Morphology Normal 08/22/17 17:46: POC Glucose 248 08/22/17 21:26: POC Glucose 67 08/22/17 23:49: POC Glucose 146 08/23/17 06:07: POC Glucose 301 I & O for Last 24 hours: Intake & Output 08/20/17 08/21/17 08/22/17 08/23/17 11:59 11:59 11:59 11:59 Intake Total 1461 / 1461 2703 / 2703 3998 / 3998 840 / 840 Output Total 350 / 350 1200 / 1200 1325 / 1325 2900 / 2900 Balance 1111 / 1111 1503 / 1503 2673 / 2673 -206 / -206 Weight 117 lb 8 oz 117 lb 8 oz 115 lb 4.722 oz Radiology Reports for the Last 24 Hours: CXR 08/22/17 IMPRESSION: Development of right-sided pneumonia in the inferior aspect of the right upper lobe and in the right lower lobe. This has developed since previous radiograph of 08/19/2017 and appears somewhat worse since the previous CT scan of 08/20/2017 - Constitutional no acute distress Comments: Sitting in recliner in his room and appears comfortable; he has finished his breakfast ; he ate everything on astray - *Routine Respiratory Exam Comments: Posteriorly: Bilateral crackles and wheezing in the bases - *Routine Cardiovascular Exam Present: RRR - *Routine Abdominal Exam Present: soft, normoactive bowel sounds. Absent: tenderness, distended - *Routine Extremities Exam Present: full ROM. Absent: edema - *Routine Neurological Exam Present: alert, oriented X3 Speech is slow Assessment and Plan (1) Bronchopneumonia Current visit: Yes Status: Acute Category: Medical Code(s): J18.0 - Bronchopneumonia, unspecified organism (2) Throat pain Current visit: Yes Status: Acute Category: Medical Code(s): R07.0 - Pain in throat (3) Renal failure Current visit: Yes Status: Acute Category: Medical Code(s): N19 - Unspecified kidney failure (4) Flu-like symptoms Current visit: Yes Status: Acute Category: Medical Code(s): R68.89 - Other general symptoms and signs - Assessment and plan all Dx Assessment and Plan for all problems:: Continue with current care; probably home tomorrow
--- NOTE | 2017-08-23 15:59 | PC.NURSE ---
Pt resting in bed, has been up to chair for most of this shift. Tolerated well. denies any new issues at this time. call light in reach, will continue to monitor
[2017-08-24] VITALS (12 sets, daily range): BP systolic 139–195; BP diastolic 68–88; PULSE 65–79; RESP 20; TEMP 36.7–37; O2SAT 90–96
--- NOTE | 2017-08-24 05:43 | PC.NURSE ---
PT CONTINUES TO HAVE SCATTERED RHONCHI TO LUNG [place]. HE REMAINS ON ROOM AIR AT THIS TIME WITH O2 MAINTAINING IN 90S. B/P IS ELEVATED THIS AM. DIRECTOR OF COLLECTIONS NOTIFIED. NO NEW ORDERS AT THIS TIME. PT HAS HAD 1050 URINE OUTPUT. MEDICATIONS ADMIN PER SEP. NO OTHER COCNERNS AT THIS TIME. WILL CONTIUE TO MONITOR.
--- NOTE | 2017-08-24 08:08 | HMH.ACPN2 ---
Internal Medicine - PN: Subj *Date: 08/24/17 *Time: 08:08 Interval history: Patient states he is feeling well today. He slept last night and is eating most of his breakfast this morning. He denies any pain and states his shortness of breath and cough have improved. He is anxious to go home. Exam Vital signs and Labs for Last 24 Hours: Temp Pulse Resp BP Pulse Ox 98.3 F 65 20 139/70 94 L 08/24/17 07:59 08/24/17 07:59 08/24/17 07:59 08/24/17 07:59 08/24/17 07:59 I & O for Last 24 hours: Intake & Output 08/21/17 08/22/17 08/23/17 08/24/17 11:59 11:59 11:59 11:59 Intake Total 2703 / 2703 3998 / 3998 840 / 840 1040 / 1040 Output Total 1200 / 1200 1325 / 1325 3200 / 3200 2025 / 2025 Balance 1503 / 1503 2673 / 2673 -2360 / -2360 -985 / -985 Weight 117 lb 8 oz 115 lb 4.722 oz - Constitutional no acute distress - *Routine Respiratory Exam Present: wheezes (faint), crackles (faint basilar) - *Routine Cardiovascular Exam Present: RRR - *Routine Abdominal Exam Present: soft, normoactive bowel sounds. Absent: tenderness - *Routine Extremities Exam Absent: edema Assessment and Plan (1) Bronchopneumonia Current visit: Yes Status: Acute Category: Medical Code(s): J18.0 - Bronchopneumonia, unspecified organism (2) Throat pain Current visit: Yes Status: Acute Category: Medical Code(s): R07.0 - Pain in throat (3) Renal failure Current visit: Yes Status: Acute Category: Medical Code(s): N19 - Unspecified kidney failure (4) Flu-like symptoms Current visit: Yes Status: Acute Category: Medical Code(s): R68.89 - Other general symptoms and signs - Assessment and plan all Dx Assessment and Plan for all problems:: Patient has improved. Possible discharge home today. Will discuss with Dr. barbour.
--- NOTE | 2017-08-24 09:11 | XR_ITS ---
XR chest 2V HISTORY: Follow-up pneumonia ITS.REASON: Bronchitis ORDERING PHYSICIAN: Sylvia Saleem MD PATIENT AGE: 82 years COMPARISON: To 518 FINDINGS: The cardiomediastinal silhouette and pulmonary vascularity are within normal limits. Right lower lobe pneumonia once again noted but has shown some improvement. Consolidation is now present in the left lower lobe and lingula consistent with pneumonia.. No effusions. Right upper lobe pneumonia also slightly improved. IMPRESSION: 1. Persistent but improving right upper and right lower lobe pneumonia. 2. Interval development of consolidation in the left lower lobe and lingula consistent with pneumonia
[2017-08-24 10:01] LABS: Basophils % 0.1 % (0.1-2.0); Eosinophils % 0.1 % (0.1-12.0); Hematocrit 35.1 % (42.0-52.0); Hemoglobin 11.5 g/dL (14.1-18.0); Lymphocytes # 0.9 K/mm3 (0.7-4.5); Lymphocytes % 8.4 K/mm3 (10-50); Mean Corpuscular HGB Conc 32.7 g/dL (31.8-35.4); Mean Corpuscular Hemoglobin 30.2 pg (27.0-31.2); Mean Corpuscular Volume 92.6 fl (80-94); Mean Platelet Volume 10.1 fl (7.4-10.4); Monocytes # 0.7 K/mm3 (0.1-1.0); Monocytes % 7.3 % (1.7-9.3); Neutrophils # 8.5 K/mm3 (1.8-7.8); Platelet Count 161 K/mm3 (142-424); Red Blood Count 3.79 M/mm3 (4.60-6.20); Red Cell Distribution Width 13.6 % (11.5-17.5); White Blood Count 10.2 K/mm3 (4.8-10.8)
[2017-08-24 12:21] LABS: POC Glucose,Bedside 300 mg/dL
--- NOTE | 2017-08-24 15:05 | DIET.NUTRFU ---
PO intakes are 100% of meals. Pt POC glucose yesterday evening was 67 ane he was given orange juice and peanut butter. Today his sugars are elevated 301,146. Pt diet is being supplemented with Glucerna supplements due to his weight loss and bmi 19.7. He is enjoying them very much. will add HS snack to diet to help prevent further evening low blood sugars. will monitor.
[2017-08-24 16:48] LABS: POC Glucose,Bedside 329 mg/dL
[2017-08-24 20:48] LABS: POC Glucose,Bedside 365 mg/dL
[2017-08-24 20:48] LABS: POC Glucose,Bedside 303 mg/dL
[2017-08-24 20:48] LABS: POC Glucose,Bedside 188 mg/dL
[2017-08-24 20:48] LABS: POC Glucose,Bedside 267 mg/dL
[2017-08-24 20:48] LABS: POC Glucose,Bedside 243 mg/dL
[2017-08-24 22:51] LABS: HIV AB(1/2) Exposures Non-Reactive (Non-Reactiv)
[2017-08-25] VITALS: BP 181/76; PULSE 69; RESP 17; TEMP 36.9; O2SAT 95
[2017-08-25 01:36] LABS: POC Glucose,Bedside 343 mg/dL
[2017-08-25 04:00] VITALS: BP 182/85; PULSE 66; RESP 18; TEMP 36.9; O2SAT 95
--- NOTE | 2017-08-25 04:18 | PC.NURSE ---
PT SLEPT WELL THIS SHIFT. RHONCHI AND WHEEZES NOTED ON LUNG AUSCULTATION. BS ACTIVE IN ALL 4 QUADS. PT STANDS BESIDE BED TO USE URINAL INDEPENDENTLY. A&OX3. VSS. NO ACUTE DISTRESS AT THIS TIME, WILL CONT. TO MONITOR.
[2017-08-25 05:47] VITALS: PULSE 93; O2SAT 97
[2017-08-25 06:35] LABS: POC Glucose,Bedside 283 mg/dL
--- NOTE | 2017-08-25 07:33 | PC.NURSE ---
report given to rolando keller rn
[2017-08-25 08:06] VITALS: BP 148/67; PULSE 63; RESP 18; TEMP 36.7; O2SAT 96
--- NOTE | 2017-08-25 08:08 | HMH.ACPN2 ---
Internal Medicine - PN: Subj *Date: 08/25/17 *Time: 08:08 Interval history: Patient feeling well this morning. He states he slept well and he ate all of his breakfast. He denies any pain and states his shortness of breath has resolved. He is anxious to go home today. Exam Vital signs and Labs for Last 24 Hours: Temp Pulse Resp BP Pulse Ox 98.0 F 63 18 148/67 96 08/25/17 08:06 08/25/17 08:06 08/25/17 08:06 08/25/17 08:06 08/25/17 08:06 Laboratory Results - last 24 hr 08/23/17 11:10: POC Glucose 243 08/23/17 11:59: POC Glucose 188 08/23/17 16:03: POC Glucose 303 08/23/17 20:19: POC Glucose 365 08/24/17 06:06: POC Glucose 267 08/24/17 09:50: WBC 10.2 D, RBC 3.79 L, Hgb 11.5 L, Hct 35.1 L, MCV 92.6, MCH 30.2, MCHC 32.7, RDW 13.6, Plt Count 161, MPV 10.1, Neut % (Auto) 84.0 H, Lymph % (Auto) 8.4 L, [place] % (Auto) 7.3, Eos % (Auto) 0.1, Baso % (Auto) 0.1, Neut # (Auto) 8.5 H, Lymph # (Auto) 0.9, [place] # (Auto) 0.7, Eos # (Auto) 0.0, Baso # (Auto) 0.0 08/24/17 11:58: POC Glucose 300 08/24/17 16:23: POC Glucose 329 08/24/17 21:03: POC Glucose 343 08/24/17 22:15: HIV 1&2 Antibody Rapid Non-reactive 08/25/17 06:02: POC Glucose 283 I & O for Last 24 hours: Intake & Output 08/22/17 08/23/17 08/24/17 08/25/17 11:59 11:59 11:59 11:59 Intake Total 3998 / 3998 840 / 840 1040 / 1040 1690 / 1690 Output Total 1325 / 1325 3200 / 3200 2025 / 2025 2350 / 2350 Balance 2673 / 2673 -2360 / -2360 -985 / -985 -660 / -660 Weight 115 lb 4.722 oz 138 lb 9 oz Radiology Reports for the Last 24 Hours: CXR - Persistent but improving right upper and right lower lobe pneumonia. Interval development of consolidation in the left lower lobe and lingula consistent with pneumonia - Constitutional no acute distress - *Routine Respiratory Exam Present: rales (faint basilar rales). Absent: wheezes - *Routine Cardiovascular Exam Present: RRR - *Routine Abdominal Exam Present: soft, normoactive bowel sounds. Absent: tenderness - *Routine Extremities Exam Absent: edema Assessment and Plan (1) Bronchopneumonia Current visit: Yes Status: Acute Category: Medical Code(s): J18.0 - Bronchopneumonia, unspecified organism (2) Throat pain Current visit: Yes Status: Acute Category: Medical Code(s): R07.0 - Pain in throat (3) Renal failure Current visit: Yes Status: Acute Category: Medical Code(s): N19 - Unspecified kidney failure (4) Flu-like symptoms Current visit: Yes Status: Acute Category: Medical Code(s): R68.89 - Other general symptoms and signs - Assessment and plan all Dx Assessment and Plan for all problems:: Patient has clinically improved even though his chest x-ray shows a possible left-sided pneumonia development. Right-sided pneumonia has improved on chest x-ray. Will discuss further care with Dr. barbour.
--- NOTE | 2017-08-25 08:11 | P.PN_ITS ---
Internal Medicine - PN: Subj *Date: 08/25/17 *Time: 08:08 Interval history: Patient feeling well this morning. He states he slept well and he ate all of his breakfast. He denies any pain and states his shortness of breath has resolved. He is anxious to go home today. Exam Vital signs and Labs for Last 24 Hours: Temp Pulse Resp BP Pulse Ox 98.0 F 63 18 148/67 96 08/25/17 08:06 08/25/17 08:06 08/25/17 08:06 08/25/17 08:06 08/25/17 08:06 Laboratory Results - last 24 hr 08/23/17 11:10: POC Glucose 243 08/23/17 11:59: POC Glucose 188 08/23/17 16:03: POC Glucose 303 08/23/17 20:19: POC Glucose 365 08/24/17 06:06: POC Glucose 267 08/24/17 09:50: WBC 10.2 D, RBC 3.79 L, Hgb 11.5 L, Hct 35.1 L, MCV 92.6, MCH 30.2, MCHC 32.7, RDW 13.6, Plt Count 161, MPV 10.1, Neut % (Auto) 84.0 H, Lymph % (Auto) 8.4 L, [place] % (Auto) 7.3, Eos % (Auto) 0.1, Baso % (Auto) 0.1, Neut # ( Auto) 8.5 H, Lymph # (Auto) 0.9, [place] # (Auto) 0.7, Eos # (Auto) 0.0, Baso # ( Auto) 0.0 08/24/17 11:58: POC Glucose 300 08/24/17 16:23: POC Glucose 329 08/24/17 21:03: POC Glucose 343 08/24/17 22:15: HIV 1&2 Antibody Rapid Non-reactive 08/25/17 06:02: POC Glucose 283 I & O for Last 24 hours: Intake & Output 08/22/17 08/23/17 08/24/17 08/25/17 11:59 11:59 11:59 11:59 Intake Total 3998 / 3998 840 / 840 1040 / 1040 1690 / 1690 Output Total 1325 / 1325 3200 / 3200 2025 / 2025 2350 / 2350 Balance 2673 / 2673 -2360 / -2360 -985 / -985 -660 / -660 Weight 115 lb 4.722 oz 138 lb 9 oz Radiology Reports for the Last 24 Hours: CXR - Persistent but improving right upper and right lower lobe pneumonia. Interval development of consolidation in the left lower lobe and lingula consistent with pneumonia - Constitutional no acute distress - *Routine Respiratory Exam Present: rales (faint basilar rales). Absent: wheezes - *Routine Cardiovascular Exam Present: RRR - *Routine Abdominal Exam Present: soft, normoactive bowel sounds. Absent: tenderness - *Routine Extremities Exam Absent: edema Assessment and Plan (1) Bronchopneumonia Current visit: Yes Status: Acute Category: Medical Code(s): J18.0 - Bronchopneumonia, unspecified organism (2) Throat pain Current visit: Yes Status: Acute Category: Medical Code(s): R07.0 - Pain in throat (3) Renal failure Current visit: Yes Status: Acute Category: Medical Code(s): N19 - Unspecified kidney failure (4) Flu-like symptoms Current visit: Yes Status: Acute Category: Medical Code(s): R68.89 - Other general symptoms and signs - Assessment and plan all Dx Assessment and Plan for all problems:: Patient has clinically improved even though his chest x-ray shows a possible left-sided pneumonia development. Right-sided pneumonia has improved on chest x -ray. Will discuss further care with Dr. barbour.
[2017-08-25 09:43] LABS: POC Glucose,Bedside 198 mg/dL
[2017-08-25 11:21] VITALS: BP 160/77; PULSE 70; RESP 18; TEMP 37; O2SAT 94
[2017-08-25 11:45] LABS: POC Glucose,Bedside 271 mg/dL
--- NOTE | 2017-08-25 14:45 | SW/DCPLANNER ---
RECEIVED REFERRAL FOR OXYGEN AND DUO NEBS AND NEBULIZER: PATIENT DID NOT QUALIFY FOR HOME 02, SATS DID NOT QUALIFY UNDER MEDICARE GUIDELINES, I DID ORDER THE NEBS AND MEDS AND IT WILL BE DELIVERED UP HERE TO THE HOSPITAL PRIOR TO DISCHARGE....
[2017-08-25 16:00] VITALS: BP 212/80; PULSE 67; RESP 20; TEMP 37.3; O2SAT 97
[2017-08-25 17:24] LABS: POC Glucose,Bedside 334 mg/dL
[2017-08-26 07:19] LABS: Hepatitis B Surface Antigen Negative (Negative)
[2017-08-26 17:09] LABS: HIV Screen 4th Generation wRfx Non Reactive (Non Reactive); Hepatitis B Core Antibody IgM Negative (Negative)
--- NOTE | 2017-08-30 14:05 | HMH.DCSUM ---
General - General Admission date: 08/19/17 Discharge date: 08/25/17 HPI HPI: This 82-year-old white male was seen Dr. Saleem in [facility] office on 08/18/2017. This was a follow-up visit but at the visit the patient was complaining that his throat was very sore. His family stated that he was not eating due to his sore throat. He has developed a cough. He had also run a low-grade fever. Flu test was negative in the office and his CBC was normal. He was discharged from the office with instructions for symptomatic care. He presented this evening at the emergency room at [facility] with the same complaints and with persistent sore throat and fever. He does have chronic renal failure and is followed by park landscape architect Dr. Matt. He is also treated for parkinsonian symptoms with carbidopa-levodopa and with Mirapex. He also takes fludrocortisone 0.1 mg 3 times a week Objective Vital signs: Temp Pulse Resp BP Pulse Ox 99.1 F 67 20 212/80 97 08/25/17 16:00 08/25/17 16:00 08/25/17 16:00 08/25/17 16:00 08/25/17 16:00 Narrative: - Constitutional no acute distress Comments: Weak and debilitated - *Routine HEENT Exam Head: Present: normocephalic. Absent: facial swelling Eye: Present: PERRL ENT: Present: mucous membranes dry - *Routine Neck Exam Present: supple, trachea midline. Absent: JVD, lymphadenopathy, thyromegaly, tenderness, swelling - Routine Chest/Breast/Axilla Exam Axillae: Absent: lymphadenopathy - *Routine Respiratory Exam Present: decreased breath sounds, CTA bilaterally. Absent: respiratory distress - *Routine Cardiovascular Exam Present: RRR, S4 - *Routine Abdominal Exam Present: soft. Absent: tenderness, organomegaly - *Routine Extremities Exam Absent: edema, calf tenderness - Routine Back/Spine/Pelvis Exam Comments: Some dorsal kyphosis - *Routine Skin Exam Present: dry - *Routine Neurological Exam Present: alert Hoarse high-pitched voice which is not unusual for him Hospital Course Hospital Course: The patient was initially started on IVF's and IV steroids. A CT of the neck and chest were ordered as his CXR was not revealing. The CT of the neck was normal but the chest CT, however, revealed diffuse bronchopneumonia on the right. He was started on IV abx and duonebs and improved. He did have to receive one dose of IV lasix d/t some SOA not improved with a neb treatment, but clinically, his pneumonia symptoms improved and he was stable to be discharged home on abx. DS: Diagnosis - Discharge Diagnosis (1) Bronchopneumonia Status: Acute (2) Throat pain Status: Acute (3) Renal failure Status: Acute (4) Flu-like symptoms Status: Acute Meds Home Medications Medication Instructions Recorded Confirmed Type Carbidopa/Levodopa 25 - 100 tab PO TID 08/19/17 08/19/17 History [Carbidopa/Levodopa 25/100mg Tablet] Carvedilol [Carvedilol 12.5mg Tab] 12.5 mg PO BID 08/19/17 08/20/17 History Citalopram Hydrobromide [Celexa 10 mg PO DAILY 08/19/17 08/20/17 History 10mg Tablet] Fludrocortisone Acetate [Florinef 0.1 mg PO DIRECTED 08/19/17 08/20/17 History 0.1mg tablet] Gabapentin [Gabapentin 100mg Cap] 100 mg PO TID 08/19/17 08/20/17 History Insulin Glargine,Hum.rec.anlog 10 unit SQ 1700 08/19/17 08/20/17 History [Toujeo Solostar] Pramipexole Di-HCl [Mirapex 0.125 mg PO HS 08/19/17 08/19/17 History 0.125mg tablet] Pravastatin Sodium [Pravachol 20mg 20 mg PO HS 08/19/17 08/20/17 History Tablet] Tamsulosin HCl [Flomax 0.4mg 0.8 mg PO HS 08/19/17 08/20/17 History capsule] Allergies Allergy/AdvReac Type Severity Reaction Status Date / Time Penicillins [PENICILLINS] Allergy Intermediate Verified 08/19/17 18:18 Discharge Plan - Patient Discharge Instructions ACTIVITY: Limited activity DIET: continue same diet Additional Instructions: I would like for him to
--- NOTE | 2017-08-30 14:12 | P.DS_ITS ---
General - General Admission date: 08/19/17 Discharge date: 08/25/17 HPI HPI: This 82-year-old white male was seen Dr. Saleem in [facility] office on 08/18/2017. This was a follow-up visit but at the visit the patient was complaining that his throat was very sore. His family stated that he was not eating due to his sore throat. He has developed a cough. He had also run a low-grade fever. Flu test was negative in the office and his CBC was normal. He was discharged from the office with instructions for symptomatic care. He presented this evening at the emergency room at [facility] with the same complaints and with persistent sore throat and fever. 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 He is also treated for parkinsonian symptoms with carbidopa-levodopa and with Mirapex. He also takes fludrocortisone 0.1 mg 3 times a week Objective Vital signs: Temp Pulse Resp BP Pulse Ox 99.1 F 67 20 212/80 97 08/25/17 16:00 08/25/17 16:00 08/25/17 16:00 08/25/17 16:00 08/25/17 16:00 Narrative: - Constitutional no acute distress Comments: Weak and debilitated - *Routine HEENT Exam Head: Present: normocephalic. Absent: facial swelling Eye: Present: PERRL ENT: Present: mucous membranes dry - *Routine Neck Exam Present: supple, trachea midline. Absent: JVD, lymphadenopathy, thyromegaly, tenderness, swelling - Routine Chest/Breast/Axilla Exam Axillae: Absent: lymphadenopathy - *Routine Respiratory Exam Present: decreased breath sounds, CTA bilaterally. Absent: respiratory distress - *Routine Cardiovascular Exam Present: RRR, S4 - *Routine Abdominal Exam Present: soft. Absent: tenderness, organomegaly - *Routine Extremities Exam Absent: edema, calf tenderness - Routine Back/Spine/Pelvis Exam Comments: Some dorsal kyphosis - *Routine Skin Exam Present: dry - *Routine Neurological Exam Present: alert Hoarse high-pitched voice which is not unusual for him Hospital Course Hospital Course: The patient was initially started on IVF's and IV steroids. A CT of the neck and chest were ordered as his CXR was not revealing. The CT of the neck was normal but the chest CT, however, revealed diffuse bronchopneumonia on the right. He was started on IV abx and duonebs and improved. He did have to receive one dose of IV lasix d/t some SOA not improved with a neb treatment, but clinically, his pneumonia symptoms improved and he was stable to be discharged home on abx. DS: Diagnosis - Discharge Diagnosis (1) Bronchopneumonia Status: Acute (2) Throat pain Status: Acute (3) Renal failure Status: Acute (4) Flu-like symptoms Status: Acute Meds Home Medications Medication Instructions Recorded Confirmed Type Carbidopa/Levodopa 25 - 100 tab PO TID 08/19/17 08/19/17 History [Carbidopa/Levodopa 25/100mg Tablet] Carvedilol [Carvedilol 12.5mg Tab] 12.5 mg PO BID 08/19/17 08/20/17 History Citalopram Hydrobromide [Celexa 10 mg PO DAILY 08/19/17 08/20/17 History 10mg Tablet] Fludrocortisone Acetate [Florinef 0.1 mg PO DIRECTED 08/19/17 08/20/17 History 0.1mg tablet] Gabapentin [Gabapentin 100mg Cap] 100 mg PO TID 08/19/17 08/20/17 History Insulin Glargine,Hum.rec.anlog 10 unit SQ 1700 08/19/17 08/20/17 History [To
== END 2017-08-25 17:15 | disposition home health service (06) | DRG 194 ==
LOC: ER 19:39 → 2ND 08-20 07:32
PROVIDERS: Emergency Medicine; Admitting Provider Family Medicine; Emergency Provider Emergency Medicine; PCP Family Medicine; Visit Provider Family Medicine
DX: J11.08 Influenza due to unidentified influenza virus with specified pneumonia (principal); N17.9 Acute kidney failure, unspecified; E11.22 Type 2 diabetes mellitus with diabetic chronic kidney disease; G20 Parkinson's disease; J18.0 Bronchopneumonia, unspecified organism; E86.0 Dehydration; R26.2 Difficulty in walking, not elsewhere classified; I12.9 Hypertensive chronic kidney disease with stage 1 through stage 4 chronic kidney disease, or unspecified chronic kidney disease; N18.9 Chronic kidney disease, unspecified; N40.0 Benign prostatic hyperplasia without lower urinary tract symptoms; I25.10 Atherosclerotic heart disease of native coronary artery without angina pectoris; F41.9 Anxiety disorder, unspecified; R07.0 Pain in throat; R53.1 Weakness; Z79.4 Long term (current) use of insulin; Z79.899 Other long term (current) drug therapy; Z88.0 Allergy status to penicillin
CPT/HCPCS: 36415; 70490; 71045; 71046; 71250; 80048; 81001; 82803; 82962; 83605; 84443; 85007; 85025; 85651; 86703; 86704; 87040; 87086; 87275; 87276; 87340; 87430; 94640; 94761; 96365; 99284; G0432

== ENCOUNTER → 2017-11-09 14:55 | Outpatient (CLI) | payer MEDICARE, SELFPAY ==
[2017-11-09 17:19] LABS: Albumin Level 3.6 gm/dL (3.4-5.0); Anion Gap 10.7 mEq/L (5-15); Blood Urea Nitrogen 33 mg/dL (7-18); Calcium 9.3 mg/dL (8.5-10.1); Carbon Dioxide 29 mmol/L (21.0-32.0); Chloride 102 mmol/L (98-107); Creatinine,Serum 2.33 mg/dL (0.70-1.30); Estimated Glomerular Filt Rate 27 ml/min (>60); GFR (African American) 33 ML/MIN (>60); Glucose 149 mg/dL (74-106); Phosphorous 4.4 mg/dL (2.4-4.9); Potassium 4.7 mmoL/L (3.5-5.1); Sodium 137 mmol/L (136-145)
== END ==
PROVIDERS: Visit Provider Internal Medicine Nephrology
DX: N18.4 Chronic kidney disease, stage 4 (severe) (principal)
CPT/HCPCS: 36415; 80069

== ENCOUNTER → 2017-11-14 14:40 | Outpatient (POV) | payer MEDICARE, SELFPAY | PROVIDERS: PCP Family Medicine; Visit Provider Internal Medicine Nephrology | DX: Z00.00 Encounter for general adult medical examination without abnormal findings (principal) ==

== ENCOUNTER → 2018-05-25 14:39 | Outpatient (CLI) | payer MEDICARE, SELFPAY ==
[2018-05-25 15:36] LABS: Basophils # 0.1 K/mm3 (0-0.2); Basophils % 0.7 % (0.1-2.0); Eosinophils # 0.1 K/mm3 (0.0-0.4); Hematocrit 38.8 % (42.0-52.0); Hemoglobin 12.6 g/dL (14.1-18.0); Lymphocytes # 1.4 K/mm3 (0.7-4.5); Lymphocytes % 20.4 % (10-50); Mean Corpuscular HGB Conc 32.4 g/dL (31.8-35.4); Mean Corpuscular Hemoglobin 30.3 pg (27.0-31.2); Mean Corpuscular Volume 93.5 fl (80-94); Mean Platelet Volume 8.1 fl (7.4-10.4); Monocytes # 0.4 K/mm3 (0.1-1.0); Monocytes % 5.7 % (1.7-9.3); Neutrophils % 72.3 % (37.0-80.0); Platelet Count 173 K/mm3 (142-424); Red Blood Count 4.16 M/mm3 (4.60-6.20); Red Cell Distribution Width 14.1 % (11.5-17.5)
[2018-05-25 16:11] LABS: Albumin Level 3.6 gm/dL (3.4-5.0); Anion Gap 12.6 mEq/L (5-15); Blood Urea Nitrogen 36 mg/dL (7-18); Calcium 8.8 mg/dL (8.5-10.1); Carbon Dioxide 28 mmol/L (21.0-32.0); Chloride 100 mmol/L (98-107); Creatinine,Serum 2.43 mg/dL (0.70-1.30); Estimated Glomerular Filt Rate 26 ml/min (>60); GFR (African American) 31 ML/MIN (>60); Glucose 132 mg/dL (74-106); Phosphorous 4.5 mg/dL (2.4-4.9); Potassium 4.6 mmoL/L (3.5-5.1); Sodium 136 mmol/L (136-145); Uric Acid 4.6 mg/dL (2.6-7.2)
[2018-05-27 12:14] LABS: Vitamin D 25 Hydroxy 35.6 ng/mL (30.0-100.0)
[2018-05-27 22:47] LABS: Parathyroid Hormone Intact 69 pg/mL (15-65)
== END ==
PROVIDERS: PCP Family Medicine; Visit Provider Internal Medicine Nephrology
DX: N18.4 Chronic kidney disease, stage 4 (severe) (principal)
CPT/HCPCS: 36415; 80069; 82330; 82652; 83970; 84550; 85025

== ENCOUNTER → 2018-05-27 08:33 | Outpatient (CLI) | payer MEDICARE, SELFPAY ==
[2018-05-27 08:38] LABS: Microscopic, Urine URINE MICROSCOPIC (MICROSCOPIC)
[2018-05-27 09:44] LABS: Appearance,Urine CLEAR (Clear); Bilirubin,Urine Negative (Negative); Blood, Urine 1+ (Negative); Color,Urine YELLOW (Yellow); Glucose,Urine (UA) Negative (Negative); Ketones,Urine Negative (Negative); Leukocyte Esterase,Urine Negative (Negative); Nitrate,Urine Negative (Negative); PH,Urine 6.5 (5.0-8.5); Protein,Urine TRACE (Negative); Urobilinogen,Urine 0.2 EU/dl (0.2)
[2018-05-27 09:55] LABS: Creatinine,Urine Random 43 mg/dL (20-320)
[2018-05-27 10:47] LABS: Bacteria,Urine Trace /lpf; Squamous Epithelial Cell,Urine Occasional #/hpf (0-5)
== END ==
PROVIDERS: Visit Provider Internal Medicine Nephrology
DX: N18.4 Chronic kidney disease, stage 4 (severe) (principal)
CPT/HCPCS: 81001; 82570; 84155

== ENCOUNTER → 2019-02-26 14:43 | Outpatient (CLI) | payer MEDICARE, SELFPAY ==
[2019-02-26 15:40] LABS: Albumin Level 3.3 gm/dL (3.4-5.0); Anion Gap 9.6 mEq/L (5-15); Blood Urea Nitrogen 35 mg/dL (7-18); Carbon Dioxide 29 mmol/L (21.0-32.0); Chloride 100 mmol/L (98-107); Creatinine,Serum 2.38 mg/dL (0.70-1.30); Estimated Glomerular Filt Rate 26 ml/min (>60); GFR (African American) 32 ML/MIN (>60); Glucose 115 mg/dL (74-106); Potassium 4.6 mmoL/L (3.5-5.1); Sodium 134 mmol/L (136-145)
== END ==
PROVIDERS: PCP Family Medicine; Visit Provider Internal Medicine Nephrology
DX: N18.4 Chronic kidney disease, stage 4 (severe) (principal); Z79.899 Other long term (current) drug therapy
CPT/HCPCS: 36415; 80069; 83036